=== PATIENT | female | born 1975 | race Two or more races ===

== ENCOUNTER 2024-10-08 19:54 | Inpatient (IN) | payer MEDICAID, OTHER ==
[~2024-10-08] VITALS: Ht 165.1 cm; Wt 110.9 kg
[2024-10-08 20:36] LABS: Hematocrit 30.7 % (36.0-46.0); Hemoglobin 10.5 g/dL (12.2-16.2); Mean Corpuscular Hemoglobin 29.3 pg (28.0-32.0); Mean Corpuscular Volume 85.6 fL (80.0-100.0); Nucleated Red Blood Cells % 0.0 %
[2024-10-08 20:49] LABS: Alanine Aminotransferase 25 U/L (7-40); Albumin 4.3 g/dL (3.2-4.8); Alkaline Phosphatase 88 U/L (46-116); Anion Gap 11 (5-15); BUN/Creatinine Ratio 28.6 (10.0-20.0); Blood Urea Nitrogen 20 mg/dL (9-23); Carbon Dioxide 23 mmol/L (20-31); Chloride 104 mmol/L (98-107); Lipase 43 U/L (12-53); Potassium 3.7 mmol/L (3.5-5.1); Sodium 138 mmol/L (136-145); Total Protein 6.8 g/dL (5.7-8.2)
--- NOTE | 2024-10-08 20:52 | ED.PDOC ---
GI ASSESSMENT HPI Comments HPI: Nereida 49 y.o female presents to the ED for a chief complaint of epigastric pain that started 1 day ago. Patient reports pain is constant, sharp, and non radiating. Patient reports pain worsens when she eats spicy foods, in which she had recently but has no alleviating factors. Patient also admits to excessive Ibu profen use due to hx of migraines, states no intake yesterday however the day before had 2,000mg spread throughout the day. Patient had an endoscopy done a while back finding ulcers and had a surgical intervention done in which she is unable to recall procedure name. Patient denies any nausea, vomiting, diarrhea, fever, chills, hematuria. dysuria. Vitals Temp: 98.1 F HR: 93 BP: 117/81 RR: 18 SPO2: 99% RA Past Medical history: gastric ulcers Past Surgical history: ulcers- unknown procedure name and hysterectomy Social History: Denies smoking, ETOH, and drug use. Allergies: NKA HPI: Poor Historian. REVIEW OF SYSTEMS: CONSTITUTIONAL: Denies acute: fever, diaphoresis, chills, generalized weakness. HEAD: Denies acute: headache, photophobia Eyes: Denies acute: Double vision, vision loss, eye pain, eye discharge. EARS: Denies acute: tinnitus, hearing loss, ear discharge, ear pain, THROAT: Denies acute: sore throat, swelling, difficulty swallowing , pain with swallowing, change in voice. NECK: Denies acute: neck pain, neck swelling, stiff neck. HEART: Denies acute : chest pain, palpitations, LUNGS: Denies acute: SOB, wheezing, cough, hemoptysis ABDOMEN: Denies acute: Nausea, Vomiting, diarrhea, melena , hematemesis, hematochezia SKIN: Denies acute: rash, redness, lesions, itchiness. EXTREMITIES: Denies acute: calf pain, numbness, tingling, weakness, denies pain in extremity. Denies acute: Low back pain. Neuro: Denies acute: focal neurological deficit, motor or sensory focal neurological deficit, tremors, seizure like activity, confusion, dizziness, change in mental status, loss of bowel or bladder function, cauda equina like symptoms. : Denies acute: dysuria, hematuria, flank pain, increase in urinary frequency. PSYCH: Denies acute: hallucination, suicidal ideation, homicidal ideation. FEMALE: Denies acute: abnormal vaginal bleeding, foul odor, unusual discharge. PHYSICAL EXAM: General: --mild------acute distress, awake and alert. Head: normocephalic, atraumatic. Neck: supple, trachea is midline, no swelling. Throat: Normal phonation. Eyes:, no erythema, no purulent discharge, no proptosis, no icterus. Heart: regular rate, regular rhythm, no significant murmur appreciated. Lungs: no apparent respiratory distress, Able to speak in full sentences. No wheezing, no rhonchi, no crackles. No stridors Clear to auscultation bilaterally. Abdomen: Epigastric tender to palpation, non distended, soft, no guarding, no rebound, + bowel sounds. Obese Neuro: Awake, Alert, oriented to name, self, situation, follows commands GCS=15. Speech is normal. Skin: no petechia, no purpura, no cyanosis, non-pale, not jaundice. Lower extremities: --no - Pitting edema no deformity, no focal swelling, no calf TTP. Makes eye contact. moves all four extremities. Face: no apparent facial droop. Ambulating in the ED independently. ED COURSE: DISCLAIMER: This medical document was created using an electronic medical record system with voice recognition software and computerized dictation system. Although this document has been carefully reviewed, there might still be some phonetic and typographical errors. Occasional wrong-word or "sound-alike" substitutions may have occurred due to the inherent limitations of voice recognition software. These areas are purely typographical due to imperfections of the software programs and do not reflect any compromise in the patient's medical care. Please read the chart carefully and recognize, using context, where these substitutions have occurred. 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 Was a procedure done?: No X-Ray, Labs, Meds, VS Vital Signs Date Time Temp Pulse Resp B/P (MAP) Pulse Ox O2 Delivery O2 Flow Rate FiO2 10/08/24 19:58 98.1 93 18 117/81 99 98.1 Lab Test 10/09/24 05:15 10/09/24 03:29 10/08/24 23:37 10/08/24 21:14 Range/Units Lactic Acid Level 2.2 *H 2.3 *H 2.9 *H 0.4-2.0 mmol/L Troponin I High Sensitivity < 3 L </=34 ng/L Urine Color Light-yellow Yellow Urine Clarity Clear Clear Urine pH 6.0 5.0-9.0 Urine Specific [place] 1.031 1.001-1.035 Urine Protein Negative Negative Urine Ketones Negative Negative Urine Blood Negative Negative /uL Urine Nitrite Negative Negative Urine Bilirubin Negative Negative Urine Urobilinogen Normal Negative mg/dL Urine Leukocyte Esterase Trace Negative /uL Urine RBC 2 0 - 4 /hpf Urine Microscopic WBC < 1 0-5 /HPF Urine Squamous Epithelial Cells Mod <5 /hpf Urine Amorphous Crystals Few None Seen /hpf Urine Bacteria None seen None Seen /hpf Urine Glucose Trace Normal mg/dL Test 10/08/24 21:03 10/08/24 20:25 Range/Units Troponin I High Sensitivity < 3 L < 3 L </=34 ng/L White Blood Count 10.3 4.4-10.8 10^3/uL Red Blood Count 3.59 L 4.0-5.20 10^6/uL Hemoglobin 10.5 L 12.2-16.2 g/dL Hematocrit 30.7 L 36.0-46.0 % Mean Corpuscular Volume 85.6 80.0-100.0 fL Mean Corpuscular Hemoglobin 29.3 28.0-32.0 pg Mean Corpuscular Hemoglobin Concent 34.2 32.0-36.0 g/dL Red Cell Distribution Width 13.7 11.8-14.3 % Platelet Count 239 140-450 10^3/uL Mean Platelet Volume 9.8 6.9-10.8 fL Neutrophils (%) (Auto) 55.7 37.0-80.0 % Lymphocytes (%) (Auto) 37.4 10.0-50.0 % Monocytes (%) (Auto) 4.8 0.0-12.0 % Eosinophils (%) (Auto) 1.7 0.0-7.0 % Basophils (%) (Auto) 0.4 0.0-2.0 % Neutrophils # (Auto) 5.7 1.6-8.6 10 ^3/uL Lymphocytes # (Auto) 3.9 0.4-5.4 10 ^3/uL Monocytes # (Auto) 0.5 0-1.3 10 ^3/uL Eosinophils # (Auto) 0.2 0-0.8 10 ^3/uL Basophils # (Auto) 0 0-0.2 10 ^3/uL Nucleated Red Blood Cells 0.0 % Sodium Level 138 136-145 mmol/L Potassium Level 3.7 3.5-5.1 mmol/L Chloride Level 104 98-107 mmol/L Carbon Dioxide Level 23 20-31 mmol/L Anion Gap 11 5-15 Blood Urea Nitrogen 20 9-23 mg/dL Creatinine 0.70 0.550-1.02 mg/dL Glomerular Filtration Rate Calc 105 >90 mL/min BUN/Creatinine Ratio 28.6 H 10.0-20.0 Serum Glucose 216 H 74-106 mg/dL Lactic Acid Level 2.6 *H 0.4-2.0 mmol/L Calcium Level 8.6 L 8.7-10.4 mg/dL Total Bilirubin 0.2 0.2-1.0 mg/dL Aspartate Amino Transferase (AST) 16 13-40 U/L Alanine Aminotransferase (ALT) 25 7-40 U/L Alkaline Phosphatase 88 46-116 U/L Total Protein 6.8 5.7-8.2 g/dL Albumin 4.3 3.2-4.8 g/dL Lipase 43 12-53 U/L Current Medications Medications (Trade) Dose Ordered Sig/Taras Route Start Time Stop Time Status Last Admin Sucralfate (Carafate Tab) 1 gm ONCE ONCE PO 10/08/24 20:45 8/11/25 20:46 DC 10/09/24 02:08 Pantoprazole Sodium (Protonix Tablet) 40 mg ONCE ONCE PO 10/08/24 20:45 10/08/24 20:46 DC 10/09/24 02:10 Lidocaine HCl (Xylocaine 2% Viscous) 10 ml ONCE ONCE PO 10/08/24 20:45 10/08/24 20:46 DC 10/09/24 02:07 Sodium Chloride 1,000 ml @ 1,000 mls/hr Q1H ONCE IV 10/08/24 21:15 10/08/24 22:14 DC 10/08/24 21:15 Sodium Chloride 1,000 ml @ 1,000 mls/hr Q1H ONCE IV 10/09/24 01:00 10/09/24 01:59 DC 10/09/24 01:00 Pantoprazole Sodium (Protonix) 40 mg ONCE ONCE IV 10/09/24 06:45 10/09/24 06:46 DC 10/09/24 09:06 Time of 1ST Reevaluation: 20:51 Reevaluation 1ST: Unchanged Patient Education/Counseling: Diagnosis, Treatment Family Education/Counseling: No Family Present Comments CT scan findings suggest ovarian cyst. Patient has no lower abdominal pain whatsoever. MDM: patient presented with the above HPI.--epigastric abdominal pain---workup was initiated. patient was found with the above mentioned diagnosis. the following medications were ordered: please refer to order lists of meds and tests obtained by myself Dr. Gallagher. Patient ED course and VS have been stabilized. Patient has been reassessed in the ED and remained in a stable condition. Pertinent incidental findings were discussed with the patient and/or family. Patient/family voices understanding and is agreeable with plan. Patient has been observed in the ED adequate length of time to insure improvement/stability. Escalation of care considered: Consideration of escalation to observation or admission Patient is given GI cocktail and fluids. Patient's lactic acid continues to rise. Patient was ADMITTED to the medicine team for further evaluation and treatment of their presentation. All the reports of any imaging studies that were ordered by myself were reviewed by myself. SEPSIS Sepsis Screen Date sepsis recognized/suspect: Oct 08, 2024 Time Sepsis recognized/suspect: 1957 Recent Procedure: No On Antibiotic Therapy: No Respiratory Rate >20: No Heart Rate >90: Yes Temp<36 C (96.8 F) or >38.3 C: No SBP <90 or MAP <65 mmHG: No New Acute Mental Status Change: No Is the patient on CPAP, BIPAP,: No Physician Orders Ct Ab Pel Wo Con-No Oral Or Iv (10/08/24 19:57) Manager Basketball (10/08/24 ) Electrocardigram (10/08/24 19:57) Vital Signs Date Time Temp Pulse Resp B/P (MAP) Pulse Ox O2 Delivery O2 Flow Rate FiO2 10/08/24 19:58 98.1 93 18 117/81 99 98.1 Laboratory Tests Test 10/08/24 20:25 10/08/24 23:37 10/09/24 03:29 10/09/24 05:15 Lactic Acid Level 2.6 mmol/L (0.4-2.0) *H 2.9 mmol/L (0.4-2.0) *H 2.3 mmol/L (0.4-2.0) *H 2.2 mmol/L (0.4-2.0) *H White Blood Count 10.3 10^3/uL (4.4-10.8) Medications Medications Dose Ordered Sig/Taras Route Start Time Stop Time Status Last Admin Dose Admin Pantoprazole Sodium 40 mg ONCE ONCE IV 10/09/24 06:45 10/09/24 06:46 DC 10/09/24 09:06 Sodium Chloride 1,000 ml @ 1,000 mls/hr Q1H ONCE IV 10/09/24 01:00 10/09/24 01:59 DC 10/09/24 01:00 Departure 1 Departure Time of Disposition: 06:46 (Patient is having episodes of melena while here. Will admit for further workup and expert consultation.) Impression: Primary Impression: Epigastric abdominal pain Additional Impressions: Anemia Elevated lactic acid level Disposition: ADMITTED INPATIENT Admit to: Med Surg Condition: Serious Discharged With: Self Critical Care Note Critical Care Time?: No Differential Diagnosis: Other Other Differential Diagnosis DDX include Diverticulitis, colitis, gastroenteritis, acute abdomen, SBO, ente ritis, constipation, volvulus, appendicitis, Gallbladder disease, choledocolithiasis, ascending cholangitis, pancreatitis, intraAbdominal mass/neoplasm, hepatitis, UTI, pylonephritis, kidney stone, aneurysm, dissection, Inflammatory bowel disease, gastroparesis, ischemic bowel, ovarian torsion, ovarian cyst/mass, tubo-ovarian abscess, , ectopic , PID, STD. Stability Stability form required: No I personally scribed for ANAY GALLAGHER DO ([email or web address]) on 10/08/24 at 20:52. Electronically submitted by Carli Hobson ([facility]). ANAY GALLAGHER DO Oct 08, 2024 20:52 AGUSTIN KELLER MD Oct 09, 2024 06:46
[2024-10-08 20:54] LABS: Bilirubin, Total 0.2 mg/dL (0.2-1.0); Calcium 8.6 mg/dL (8.7-10.4); Glucose 216 mg/dL (74-106)
[2024-10-08 20:56] LABS: Lactic Acid w/Reflex 2.6 mmol/L (0.4-2.0)
[2024-10-08] MEDS: SODIUM CHLORIDE 0.9% 1,000 ML IV ONE (21:15)
--- NOTE | 2024-10-08 21:19 | DVH ---
COMPUTERIZED TOMOGRAPHY ABDOMEN AND PELVIS WITHOUT CONTRAST REASON FOR EXAM: abd pain COMPARISON: None TECHNIQUE: Spiral scans were acquired from the diaphragm to the symphysis pubis without intravenous c ontrast administration. 2-D coronal and sagittal reformatted images were provided. Radiation optimiza tion: All CT scans at this facility use at least one of these dose optimization techniques: Automated exposure control mA and/or kV adjustment per patient size (includes targeted exams where dose is mat ched to clinical indication) or iterative reconstruction. RADIATION DOSE: CTDI: 25.75 mGy DLP: 1339.38 mGy-cm FINDINGS: The visualized lung bases are clear. There is no pleural effusion. There is no pericardial effusion . The spleen is not enlarged. The liver is enlarged at approximately 22.9 cm in length. The liver is d iffusely hypoattenuating. No calcified gallstone is identified. Evaluation of the abdominal content s is suboptimal in the absence of intravenous contrast. Unenhanced appearance of the pancreas is kia sly unremarkable. There is evidence of prior gastric sleeve surgery. The adrenal glands are normal. The kidneys are similar in size. There is no hydronephrosis of either kidney. There is no renal, uret eral, or bladder calculus. The urinary bladder is grossly unremarkable. There is no abdominal aortic aneurysm. There is no free fluid identified in the abdomen or pelvis. The uterus is absent. The left ovary is not seen. There is a 3.4 cm right ovarian cyst. The colonic stool burden is small. The appe ndix is normal. There is no distention of the small bowel to suggest obstruction. No pathologic lymph adenopathy is identified by size criteria. No acute osseous abnormality is identified. IMPRESSION: There is a 3.4 cm right ovarian cyst. This may be a cause of pain. Pelvic ultrasound is recommended . Hepatomegaly. The liver is diffusely hypoattenuating which may be secondary to steatosis or another d iffuse hepatic process. Correlate clinically and with liver function tests. Normal appendix Gastric sleeve.
[2024-10-08 21:33] LABS: Urine Amorphous Crystal FEW /hpf (None Seen); Urine Protein, UAD Negative (Negative)
[2024-10-09] MEDS: SODIUM CHLORIDE 0.9% 1,000 ML IV ONE ×2 (01:00→17:45)
[2024-10-09] MEDS: LIDOCAINE VISCOUS 2% 15ML UD PO ONE (02:07)
[2024-10-09] MEDS: SUCRALFATE 1 GM TAB PO ONE (02:08)
[2024-10-09] MEDS: PANTOPRAZOLE 40 MG TAB PO ONE (02:10)
[2024-10-09 04:05] LABS: Lactic Acid w/Reflex 2.3 mmol/L (0.4-2.0)
[2024-10-09] MEDS ORDERED: DOCUSATE SOD 100 MG CAP PO PRN (08:15)
[2024-10-09] MEDS ORDERED: ONDANSETRON HCL 4 MG/2 ML VIAL IV PRN (08:15)
--- NOTE | 2024-10-09 08:24 | DVHHP2 ---
History of Present Illness Reason for Visit: Abdomial pain History of Present Illness Eav Padron is a 49-year-old female with a past medical history of gastric ulcer requiring surgical repair 30years ago, diabetes, fibromyalgia, and migraines, who came to the hospital for abdominal pain. Patient states she was experiencing daily migraines for which she is taking Excedrin 2-3 times a day and then takes Motrin about 2 hours after the Excedrin. 2 days ago she began experiencing epigastric abdominal pain and black stool. The pain continued to worsen and her stool remained black over the last couple of days prompting her to come to the hospital. 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 Musculoskeletal: Other (Fibromyalgia) Endocrine: Diabetes Past Surgical History: Hysterectomy, Other (stomach ulcer surgery 30 years ago) Smoke: Quit (1 month ago) ALCOHOL: rare Drugs: None Lives: with Family Domestic Violence: Neg Review of Systems Constitutional: No: Fever, Chills, Sweats, Weakness, Malaise, Other Eyes: No: Pain, Vision change, Conjunctivae inflammation, Eyelid inflammation, Other, Redness ENT: No: Ear pain, Ear discharge, Nose pain, Nose discharge, Nose congestion, Mouth pain, Mouth swelling, Throat pain, Throat swelling, Other Respiratory: No: Cough, Dry, Shortness of breath, SOB with excertion, Wheezing, Hemoptysis, Pleuritic Pain, Sputum, Wheezing, Other Cardiovascular: No: Chest Pain, Palpitations, Orthopnea, Paroxysmal Noc. Dyspnea, Edema, Lt Headedness, Other Gastrointestinal: Abdominal Pain, Melena; No: Nausea, Vomiting, Diarrhea, Constipation, Hematochezia, Other Genitourinary: No Dysuria, No Frequency, No Incontinence, No Hematuria, No Retention, No Other Musculoskeletal: No: other, neck pain, shoulder pain, arm pain, back pain, hand pain, leg pain, foot pain Skin: No: Rash, Lesions, Jaundice, Bruising, Other Neurological: No: Weakness, Numbness, Incoordination, Change in speech, Confusion, Seizures, Other Allergies: Coded Allergies: NO KNOWN ALLERGIES (Unverified , 10/08/24) Medications Current Medications Medications Dose Ordered Sig/Taras Route Start Time Stop Time Status Last Admin Dose Admin Acetaminophen/ Hydrocodone Bitart 1 tab Q4HP PRN PO 10/09/24 08:15 UNV Ondansetron HCl 4 mg Q4HP PRN IV 10/09/24 08:15 UNV Docusate Sodium 100 mg BIDPRN PRN PO 10/09/24 08:15 UNV Acetaminophen 650 mg Q6HP PRN PO 10/09/24 08:15 UNV Exam Vital Signs Vital Signs Date Time Temp Pulse Resp B/P (MAP) Pulse Ox O2 Delivery O2 Flow Rate FiO2 10/08/24 19:58 98.1 93 18 117/81 99 98.1 General Appearance: Alert, Oriented X3, Cooperative, mild distress HEENT: Atraumatic, PERRLA Respiratory: Clear to auscultation, Normal air movement Cardiovascular: Regular rate, Normal S1, Normal S2, No murmurs Abdominal: Normal bowel sounds, Soft, Other (epigastric pain, Melena) Extremities: No clubbing, No cyanosis, No edema, Normal pulses, No tenderness/swelling Skin: No rashes, No breakdown, No significant lesion Neuro: Normal gait, Normal speech, Strength at 5/5 X4 ext, Normal tone Psych/Mental Status: Mental status NL, Mood NL Labs/Xrays Labs Test 10/09/24 05:15 10/08/24 23:37 10/08/24 21:14 10/08/24 20:25 Range/Units Lactic Acid Level 2.2 *H 0.4-2.0 mmol/L Troponin I High Sensitivity < 3 L </=34 ng/L Urine Color Light-yellow Yellow Urine Clarity Clear Clear Urine pH 6.0 5.0-9.0 Urine Specific [place] 1.031 1.001-1.035 Urine Protein Negative Negative Urine Ketones Negative Negative Urine Blood Negative Negative /uL Urine Nitrite Negative Negative Urine Bilirubin Negative Negative Urine Urobilinogen Normal Negative mg/dL Urine Leukocyte Esterase Trace Negative /uL Urine RBC 2 0 - 4 /hpf Urine Microscopic WBC < 1 0-5 /HPF Urine Squamous Epithelial Cells Mod <5 /hpf Urine Amorphous Crystals Few None Seen /hpf Urine Bacteria None seen None Seen /hpf Urine Glucose Trace Normal mg/dL White Blood Count 10.3 4.4-10.8 10^3/uL Red Blood Count 3.59 L 4.0-5.20 10^6/uL Hemoglobin 10.5 L 12.2-16.2 g/dL Hematocrit 30.7 L 36.0-46.0 % Mean Corpuscular Volume 85.6 80.0-100.0 fL Mean Corpuscular Hemoglobin 29.3 28.0-32.0 pg Mean Corpuscular Hemoglobin Concent 34.2 32.0-36.0 g/dL Red Cell Distribution Width 13.7 11.8-14.3 % Platelet Count 239 140-450 10^3/uL Mean Platelet Volume 9.8 6.9-10.8 fL Neutrophils (%) (Auto) 55.7 37.0-80.0 % Lymphocytes (%) (Auto) 37.4 10.0-50.0 % Monocytes (%) (Auto) 4.8 0.0-12.0 % Eosinophils (%) (Auto) 1.7 0.0-7.0 % Basophils (%) (Auto) 0.4 0.0-2.0 % Neutrophils # (Auto) 5.7 1.6-8.6 10 ^3/uL Lymphocytes # (Auto) 3.9 0.4-5.4 10 ^3/uL Monocytes # (Auto) 0.5 0-1.3 10 ^3/uL Eosinophils # (Auto) 0.2 0-0.8 10 ^3/uL Basophils # (Auto) 0 0-0.2 10 ^3/uL Nucleated Red Blood Cells 0.0 % Sodium Level 138 136-145 mmol/L Potassium Level 3.7 3.5-5.1 mmol/L Chloride Level 104 98-107 mmol/L Carbon Dioxide Level 23 20-31 mmol/L Anion Gap 11 5-15 Blood Urea Nitrogen 20 9-23 mg/dL Creatinine 0.70 0.550-1.02 mg/dL Glomerular Filtration Rate Calc 105 >90 mL/min BUN/Creatinine Ratio 28.6 H 10.0-20.0 Serum Glucose 216 H 74-106 mg/dL Calcium Level 8.6 L 8.7-10.4 mg/dL Total Bilirubin 0.2 0.2-1.0 mg/dL Aspartate Amino Transferase (AST) 16 13-40 U/L Alanine Aminotransferase (ALT) 25 7-40 U/L Alkaline Phosphatase 88 46-116 U/L Total Protein 6.8 5.7-8.2 g/dL Albumin 4.3 3.2-4.8 g/dL Lipase 43 12-53 U/L COMPUTERIZED TOMOGRAPHY ABDOMEN AND PELVIS WITHOUT CONTRAST FINDINGS: The visualized lung bases are clear. There is no pleural effusion. There is no pericardial effusion. The spleen is not enlarged. The liver is enlarged at approximately 22.9 cm in length. The liver is diffusely hypoattenuating. No calcified gallstone is identified. Evaluation of the abdominal contents is suboptimal in the absence of intravenous contrast. Unenhanced appearance of the pancreas is grossly unremarkable. There is evidence of prior gastric sleeve surgery. The adrenal glands are normal. The kidneys are similar in size. There is no hydronephrosis of either kidney. There is no renal, ureteral, or bladder calculus. The urinary bladder is grossly unremarkable. There is no abdominal aortic aneurysm. There is no free fluid identified in the abdomen or pelvis. The uterus is absent. The left ovary is not seen. There is a 3.4 cm right ovarian cyst. The colonic stool burden is small. The appendix is normal. There is no distention of the small bowel to suggest obstruction. No pathologic lymphadenopathy is identified by size criteria. No acute osseous abnormality is identified. IMPRESSION: There is a 3.4 cm right ovarian cyst. This may be a cause of pain. Pelvic ultrasound is recommended. Hepatomegaly. The liver is diffusely hypoattenuating which may be secondary to steatosis or another diffuse hepatic process. Correlate clinically and with liver function tests. Normal appendix Gastric sleeve. SEPSIS Sepsis Screen Date sepsis recognized/suspect: Oct 08, 2024 Time Sepsis recognized/suspect: 1957 Recent Procedure: No On Antibiotic Therapy: No Respiratory Rate >20: No Heart Rate >90: Yes Temp<36 C (96.8 F) or >38.3 C: No SBP <90 or MAP <65 mmHG: No New Acute Mental Status Change: No Is the patient on CPAP, BIPAP,: No Physician Orders Admit (10/09/24 08:05) Code Status (10/09/24 08:05) Hydrocodone-Acet 5/325mg Tab ([place] 5/32 (10/09/24 08:15) Ondansetron Hcl (Zofran) (10/09/24 08:15) Docusate Sodium Capsule (Colace Capsule) (10/09/24 08:15) Complete Blood Count (10/10/24 04:00) Comprehensive Metabolic Panel (10/10/24 04:00) Condition: Serious (10/09/24 08:05) Acetaminophen Tablet (Tylenol Tablet) (10/09/24 08:15) Clear Liq Diet (10/09/24 Breakfast) Hemoglobin & Hematocrit (10/09/24 08:05) Lactic Acid W/ Reflex Order (10/09/24 08:05) * 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 (10/09/24 08:05) Laboratory Tests Test 10/08/24 20:25 10/08/24 23:37 10/09/24 03:29 10/09/24 05:15 Lactic Acid Level 2.6 mmol/L (0.4-2.0) *H 2.9 mmol/L (0.4-2.0) *H 2.3 mmol/L (0.4-2.0) *H 2.2 mmol/L (0.4-2.0) *H White Blood Count 10.3 10^3/uL (4.4-10.8) Medications Medications Dose Ordered Sig/Taras Route Start Time Stop Time Status Last Admin Dose Admin Lidocaine HCl 10 ml ONCE ONCE PO 10/08/24 20:45 10/08/24 20:46 DC 10/09/24 02:07 10 ML Pantoprazole Sodium 40 mg ONCE ONCE PO 10/08/24 20:45 10/08/24 20:46 DC 10/09/24 02:10 40 MG Sodium Chloride 1,000 ml @ 1,000 mls/hr Q1H ONCE IV 10/08/24 21:15 10/08/24 22:14 DC 10/08/24 21:15 1,000 MLS/HR Sodium Chloride 1,000 ml @ 1,000 mls/hr Q1H ONCE IV 10/09/24 01:00 10/09/24 01:59 DC 10/09/24 01:00 1,000 MLS/HR Sucralfate 1 gm ONCE ONCE PO 10/08/24 20:45 10/08/24 20:46 DC 10/09/24 02:08 1 GM Assessment/Plan Assessment/Plan Assessment: Melena, Acute abdominal pain, Lactic acidosis, Diabetes, Fibromyalgia, Plan: Admit to Med-Surg, GI consult, IV hydration, Send stool for occult blood, Clear liquid diet, Manage/Monitor H&H closely, Accu checks Q AC&HS with sliding scale, Home medications reconciled, Plan discussed with: Patient My Orders Orders - CABRERA JOLLY Procedure Category Date Status Time Admit ADMIT 10/09/24 Transmitted 08:05 Code Status CODE 10/09/24 Transmitted 08:05 Hydrocodone-Acet PHA 10/09/24 Logged 5/325mg Tab ([place] 08:15 Ondansetron Hcl PHA 10/09/24 Logged (Zofran) 08:15 Docusate Sodium PHA 10/09/24 Logged Capsule (Colace 08:15 Complete Blood Count LAB 10/10/24 Verified 04:00 Comprehensive LAB 10/10/24 Verified Metabolic Panel 04:00 Condition: Serious BOBBY 10/09/24 In Process 08:05 Acetaminophen Tablet PHA 10/09/24 Logged (Tylenol Tablet) 08:15 Clear Liq Diet DIET 10/09/24 Transmitted Breakfast Hemoglobin & LAB 10/09/24 Logged Hematocrit 08:05 Lactic Acid W/ Reflex LAB 10/09/24 Logged Order 08:05 * 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 CONS 10/09/24 Transmitted 08:05 Date of Service: Oct 09, 2024 Billing Provider: CABRERA JOLLY Common Visit Codes: [id number] INP/OBS CARE (MOD) CABRERA JOLLYP Oct 09, 2024 08:24
[2024-10-09 08:54] LABS: Hematocrit 29.5 % (36.0-46.0); Hemoglobin 10.1 g/dL (12.2-16.2)
[2024-10-09 09:00] VITALS: PULSE 93; RESP 17; O2SAT 100
[2024-10-09] MEDS ORDERED: DEXTROSE (50%) 50ML SYRG IV PRN (09:00)
[2024-10-09] MEDS: PANTOPRAZOLE 40 MG/10 ML VIAL INJ IV ONE (09:06)
[2024-10-09 09:17] LABS: Lactic Acid w/Reflex 2.6 mmol/L (0.4-2.0)
[2024-10-09 11:10] VITALS: BP 108/67; PULSE 93; RESP 20; TEMP 98.2; O2SAT 97
[2024-10-09] MEDS: ACCU-CHEK COMFORT CURVE STRIP VI SCH (11:20)
[2024-10-09] MEDS: InsuLIN REG 1unit/0.01ml Soln (100units/ml) SC SCH ×2 (11:21→21:15)
[2024-10-09 13:00] VITALS: BP 100/61; PULSE 87; RESP 18; TEMP 99.1; O2SAT 98
--- NOTE | 2024-10-09 13:54 | DVHINCON2 ---
GI Consult Consult Note GI consult note Date of Consultation: 10/09/2024 Chief Complaint: Melena Referring Physician: Raghav ALEXANDER H&P: 49-year-old female with past medical history of gastric ulcer requiring gas trick surgical repair 30 years ago, DM fibromyalgia and migraines is admitted with abdominal pain. Patient has epigastric abdominal pain for the three days, described as persistent burning to sharp sensation. Pain is worse after eating. Patient has nausea denies vomiting no hematemesis. Patient has been having black stool for the past three days. Has not been taking any Pepto-Bismol. No EGD in past. Denies any blood thinners Past Medical History: Migraine , fibromyalgia, DM Past Surgical History: Hysterectomy, Other (stomach ulcer surgery 30 years ago) Social History: NO smoking, drinking ETOH and use of illegal drugs. Family History: Noncontributory Review of Systems: Constitutional: no fever, chill, weight loss HEENT: no eye pain, no hearing loss, no oral lesion, no scleral icterus Heart: no chest pain, no chest pressure Lung: no cough, no dyspnea with exertion Abdomen: see HPI Physical exam: General: NAD, AAOX3 Chest: lung schmid clear to auscultation Heart: RRR, no murmur Abdomen: non-distended, positive epigastric tenderness to palpation, +BS Labs: Labs Test 10/09/24 12:51 10/09/24 11:18 10/09/24 08:30 10/08/24 23:37 Range/Units Stool Occult Blood Positive Negative Stool Occult Blood Sample #3 Negative POC Glucose 208 H 70-106 mg/dl Hemoglobin 10.1 L 12.2-16.2 g/dL Hematocrit 29.5 L 36.0-46.0 % Hemoglobin A1c 9.4 H <5.7 % A1C Lactic Acid Level 2.6 *H 0.4-2.0 mmol/L Troponin I High Sensitivity < 3 L </=34 ng/L Test 10/08/24 21:14 10/08/24 20:25 Range/Units Urine Color Light-yellow Yellow Urine Clarity Clear Clear Urine pH 6.0 5.0-9.0 Urine Specific [place] 1.031 1.001-1.035 Urine Protein Negative Negative Urine Ketones Negative Negative Urine Blood Negative Negative /uL Urine Nitrite Negative Negative Urine Bilirubin Negative Negative Urine Urobilinogen Normal Negative mg/dL Urine Leukocyte Esterase Trace Negative /uL Urine RBC 2 0 - 4 /hpf Urine Microscopic WBC < 1 0-5 /HPF Urine Squamous Epithelial Cells Mod <5 /hpf Urine Amorphous Crystals Few None Seen /hpf Urine Bacteria None seen None Seen /hpf Urine Glucose Trace Normal mg/dL White Blood Count 10.3 4.4-10.8 10^3/uL Red Blood Count 3.59 L 4.0-5.20 10^6/uL Mean Corpuscular Volume 85.6 80.0-100.0 fL Mean Corpuscular Hemoglobin 29.3 28.0-32.0 pg Mean Corpuscular Hemoglobin Concent 34.2 32.0-36.0 g/dL Red Cell Distribution Width 13.7 11.8-14.3 % Platelet Count 239 140-450 10^3/uL Mean Platelet Volume 9.8 6.9-10.8 fL Neutrophils (%) (Auto) 55.7 37.0-80.0 % Lymphocytes (%) (Auto) 37.4 10.0-50.0 % Monocytes (%) (Auto) 4.8 0.0-12.0 % Eosinophils (%) (Auto) 1.7 0.0-7.0 % Basophils (%) (Auto) 0.4 0.0-2.0 % Neutrophils # (Auto) 5.7 1.6-8.6 10 ^3/uL Lymphocytes # (Auto) 3.9 0.4-5.4 10 ^3/uL Monocytes # (Auto) 0.5 0-1.3 10 ^3/uL Eosinophils # (Auto) 0.2 0-0.8 10 ^3/uL Basophils # (Auto) 0 0-0.2 10 ^3/uL Nucleated Red Blood Cells 0.0 % Sodium Level 138 136-145 mmol/L Potassium Level 3.7 3.5-5.1 mmol/L Chloride Level 104 98-107 mmol/L Carbon Dioxide Level 23 20-31 mmol/L Anion Gap 11 5-15 Blood Urea Nitrogen 20 9-23 mg/dL Creatinine 0.70 0.550-1.02 mg/dL Glomerular Filtration Rate Calc 105 >90 mL/min BUN/Creatinine Ratio 28.6 H 10.0-20.0 Serum Glucose 216 H 74-106 mg/dL Calcium Level 8.6 L 8.7-10.4 mg/dL Total Bilirubin 0.2 0.2-1.0 mg/dL Aspartate Amino Transferase (AST) 16 13-40 U/L Alanine Aminotransferase (ALT) 25 7-40 U/L Alkaline Phosphatase 88 46-116 U/L Total Protein 6.8 5.7-8.2 g/dL Albumin 4.3 3.2-4.8 g/dL Lipase 43 12-53 U/L Imaging: CT abdomen pelvis IMPRESSION: There is a 3.4 cm right ovarian cyst. This may be a cause of pain. Pelvic ultrasound is recommended. Hepatomegaly. The liver is diffusely hypoattenuating which may be secondary to steatosis or another diffuse hepatic process. Correlate clinically and with liver function tests. Normal appendix Gastric sleeve. Assessment: Abdominal pain GI bleed Ovarian cyst Hepatomegaly Status post gastric sleeve Plan: Discussed with Dr. Farias - Pt will be scheduled for an EGD tomorrow 10/10/2024. Pt was informed of the risks (bleeding, infection, perforation, reaction to sedation medications and cardiopulmonary arrest) and benefit and is agreeable to undergo the procedures. Zofran and Protonix NPO after midnight Discussed plan with patient and RN Thank you for this consult Date of Service: Oct 09, 2024 Billing Provider: KATHERINE VALENTIN Common Visit Codes: CONSULT ONLY Consultation Codes: [id number] CONSULT <60MIN KATHERINE VALENTIN Oct 09, 2024 13:54
[2024-10-09 17:00] VITALS: BP 131/79; PULSE 77; RESP 18; TEMP 97.8; O2SAT 98
[2024-10-09] MEDS: ACETAMINOPHEN 325 MG TAB PO PRN (18:45)
[2024-10-09 20:00] VITALS: PULSE 66; RESP 17; O2SAT 99
[2024-10-09 21:00] VITALS: BP 110/61; PULSE 66; RESP 17; TEMP 98.1; O2SAT 99
[2024-10-09] MEDS: HYDROcodone-ACET 5/325MG TAB PO PRN (21:10)
[2024-10-09] MEDS: SUCRALFATE 1 GM/10 ML ORAL SUSP PO SCH (21:11)
[2024-10-10] VITALS (7 sets, daily range): BP systolic 94–125; BP diastolic 65–83; PULSE 62–86; RESP 16–19; TEMP 36.6; O2SAT 95–100
[2024-10-10] MEDS: PANTOPRAZOLE 40 MG TAB PO SCH (05:47)
[2024-10-10 06:37] LABS: Hematocrit 25.1 % (36.0-46.0); Hemoglobin 8.6 g/dL (12.2-16.2); Mean Corpuscular Hemoglobin 29.5 pg (28.0-32.0); Mean Corpuscular Volume 86.0 fL (80.0-100.0); Nucleated Red Blood Cells % 0.2 %
[2024-10-10 06:55] LABS: Alanine Aminotransferase 28 U/L (7-40); Albumin 3.3 g/dL (3.2-4.8); Alkaline Phosphatase 78 U/L (46-116); Anion Gap 9 (5-15); BUN/Creatinine Ratio 15.3 (10.0-20.0); Blood Urea Nitrogen 9 mg/dL (9-23); Carbon Dioxide 25 mmol/L (20-31); Potassium 3.5 mmol/L (3.5-5.1); Sodium 142 mmol/L (136-145)
[2024-10-10 06:58] LABS: Bilirubin, Total 0.3 mg/dL (0.2-1.0); Calcium 8.1 mg/dL (8.7-10.4); Chloride 108 mmol/L (98-107); Glucose 141 mg/dL (74-106); Total Protein 5.5 g/dL (5.7-8.2)
[2024-10-10 07:37] LABS: INR 0.99 (0.9-1.15); Partial Thromboplastin Time 26.3 SEC (24.5-34.5); Prothrombin Time 10.5 sec (9.3-11.8)
[2024-10-10 12:25] LABS: Ferritin 42.8 ng/mL (10-291)
[2024-10-10] MEDS ORDERED: ONDANSETRON HCL 4 MG/2 ML VIAL ONE (12:31)
[2024-10-10] MEDS ORDERED: METOCLOPRAMIDE HCL 5MG/ml INJ 2ml VIAL ONE (12:31)
[2024-10-10] MEDS ORDERED: PROPOFOL 10 MG/ML 20 ML IV ONE (12:31)
[2024-10-10 12:52] LABS: Iron 44.0 ug/dL (50-170)
--- NOTE | 2024-10-10 12:52 | DVHOP2 ---
Operative Report DATE OF OPERATION: 10/10/24 PROCEDURE: Upper Endoscopy with biopsy. PREOPERATIVE INDICATION: The patient is a 49 -year-old female undergoing endoscopy for epigastric pain melena and anemia POSTOPERATIVE DIAGNOSES: 1. [id number] linear antral gastritis with hyperemia erythema and some superficial erosions 2. 5 mm extension of columnar epithelium into the distal esophagus with no significant esophagitis 3. Otherwise normal examination up to the 2nd and 3rd part of the duodenum with good bile drainage and no active bleeding PROCEDURE PERFORMED BY: Leona Farias GI NURSE: Chani SCOPE: Olympus videoendoscope. ASA CLASS: 2 PREOPERATIVE MEDICATIONS: Mac sedation, Kingsley Sanders PROCEDURE IN DETAIL: After obtaining an informed consent, the patient was placed on left lateral decubitus position. The patient was then sedated with the above medications. A bite block was placed between her teeth. The endoscope was then passed through the oropharynx, into the esophagus, and through the stomach and pylorus up to the second and third part of the duodenum. The endoscope was then withdrawn. The 2nd and 3rd part of the duodenum and the duodenal bulb were normal. The pre-pyloric area and antrum showed mild to moderate linear antral gastritis with a couple of superficial erosions On retroflexion the fundus cardia and angularis were normal. Duodenal and gastric biopsies were obtained. There was no fresh or old blood in the upper GI tract. The endoscope was then withdrawn into distal esophagus Patient had a 5 mm extension of columnar epithelium into the distal esophagus with no significant erosive esophagitis The remaining distal and proximal esophagus and oropharynx were unremarkable The patient tolerated the procedure well without difficulty. COMPLICATIONS : None SPECIMENS: Duodenal biopsies Gastric biopsies DISPOSITION: Transfer back to the floor Stable PLAN: 1. Await for biopsy result 2. Will place pt on Protonix 40 mg bid p.o. 3. Carafate 1 g p.o. 4 times a day 4. DC aspirin NSAIDs smoking alcohol 5. Outpatient follow up with me for elective colonoscopy for colon cancer screening LEONA FARIAS MD Oct 10, 2024 12:52
[2024-10-10 12:54] LABS: Total Iron Binding Capacity 333.0 ug/dL (250-425)
[2024-10-10] MEDS ORDERED: SUCR1SUS26 PO (13:58)
[2024-10-10] MEDS ORDERED: PANT40T PO (13:58)
[2024-10-10] MEDS ORDERED: CYAN-17 PO (14:00)
--- NOTE | 2024-10-10 14:02 | DVHDS2 ---
Discharge Summary Date of Admission Oct 09, 2024 at 08:05 Date of Discharge: Oct 10, 2024 Admitting Diagnosis GI Bleed Labs/Diagnostic Data: Laboratory Results Test 10/10/24 11:59 10/10/24 05:18 10/09/24 12:51 10/09/24 08:30 POC Glucose 135 mg/dl (70-106) White Blood Count 4.4 10^3/uL (4.4-10.8) Red Blood Count 2.92 10^6/uL (4.0-5.20) Hemoglobin 8.6 g/dL (12.2-16.2) Hematocrit 25.1 % (36.0-46.0) Mean Corpuscular Volume 86.0 fL (80.0-100.0) Mean Corpuscular Hemoglobin 29.5 pg (28.0-32.0) Mean Corpuscular Hemoglobin Concent 34.4 g/dL (32.0-36.0) Red Cell Distribution Width 14.1 % (11.8-14.3) Platelet Count 152 10^3/uL (140-450) Mean Platelet Volume 9.8 fL (6.9-10.8) Neutrophils (%) (Auto) 54.5 % (37.0-80.0) Lymphocytes (%) (Auto) 37.2 % (10.0-50.0) Monocytes (%) (Auto) 5.0 % (0.0-12.0) Eosinophils (%) (Auto) 2.9 % (0.0-7.0) Basophils (%) (Auto) 0.4 % (0.0-2.0) Neutrophils # (Auto) 2.4 10 ^3/uL (1.6-8.6) Lymphocytes # (Auto) 1.6 10 ^3/uL (0.4-5.4) Monocytes # (Auto) 0.2 10 ^3/uL (0-1.3) Eosinophils # (Auto) 0.1 10 ^3/uL (0-0.8) Basophils # (Auto) 0 10 ^3/uL (0-0.2) Nucleated Red Blood Cells 0.2 % Prothrombin Time 10.5 sec (9.3-11.8) Prothrombin Time INR 0.99 (0.9-1.15) Activated Partial Thromboplast Time 26.3 SEC (24.5-34.5) Sodium Level 142 mmol/L (136-145) Potassium Level 3.5 mmol/L (3.5-5.1) Chloride Level 108 mmol/L (98-107) Carbon Dioxide Level 25 mmol/L (20-31) Anion Gap 9 (5-15) Blood Urea Nitrogen 9 mg/dL (9-23) Creatinine 0.59 mg/dL (0.550-1.02) Glomerular Filtration Rate Calc 109 mL/min (>90) BUN/Creatinine Ratio 15.3 (10.0-20.0) Serum Glucose 141 mg/dL (74-106) Lactic Acid Level 1.0 mmol/L (0.4-2.0) Calcium Level 8.1 mg/dL (8.7-10.4) Iron Level 44 ug/dL (50-170) Total Iron Binding Capacity 333 ug/dL (250-425) Percent Iron Saturation 13.2 % (15-50) Ferritin 42.8 ng/mL (10-291) Total Bilirubin 0.3 mg/dL (0.2-1.0) Aspartate Amino Transferase (AST) 32 U/L (13-40) Alanine Aminotransferase (ALT) 28 U/L (7-40) Alkaline Phosphatase 78 U/L (46-116) Lactate Dehydrogenase 149 U/L (120-246) Total Protein 5.5 g/dL (5.7-8.2) Albumin 3.3 g/dL (3.2-4.8) Vitamin B12 Level 346 pg/mL (211-911) Folic Acid 16.02 ng/mL (>5.38) Stool Occult Blood Positive (Negative) Stool Occult Blood Sample #3 (Negative) Hemoglobin A1c 9.4 % A1C (<5.7) Test 10/08/24 23:37 10/08/24 21:14 10/08/24 20:25 Troponin I High Sensitivity < 3 ng/L (</=34) Urine Color Light-yellow (Yellow) Urine Clarity Clear (Clear) Urine pH 6.0 (5.0-9.0) Urine Specific [place] 1.031 (1.001-1.035) Urine Protein Negative (Negative) Urine Ketones Negative (Negative) Urine Blood Negative /uL (Negative) Urine Nitrite Negative (Negative) Urine Bilirubin Negative (Negative) Urine Urobilinogen Normal mg/dL (Negative) Urine Leukocyte Esterase Trace /uL (Negative) Urine RBC 2 /hpf (0 - 4) Urine Microscopic WBC < 1 /HPF (0-5) Urine Squamous Epithelial Cells Mod /hpf (<5) Urine Amorphous Crystals Few /hpf (None Seen) Urine Bacteria None seen /hpf (None Seen) Urine Glucose Trace mg/dL (Normal) Lipase 43 U/L (12-53) Other Laboratory Tests 10/10/24 05:18 Brief Hx & Hospital Course: Patient is a 49 year-old Obese female who presented to the ED with complaints of Melena for 3-4 days. Patient reports to be taking Excedrin and Ibuprofen for migraines at home. Advised to discontinue at home. EGD was done, see report below. Patient needs to followup with DC clinic in 1 week for Pathology results. Patient also needs to get an elective colonoscopy done as outpatient. Patient will be discharged home with Protonix and Carafate for home. Operations or Procedures Operative Report DATE OF OPERATION: 10/10/24 PROCEDURE: Upper Endoscopy with biopsy. PREOPERATIVE INDICATION: The patient is a 49 -year-old female undergoing endoscopy for epigastric pain melena and anemia POSTOPERATIVE DIAGNOSES: 1. [id number] linear antral gastritis with hyperemia erythema and some superficial erosions 2. 5 mm extension of columnar epithelium into the distal esophagus with no significant esophagitis 3. Otherwise normal examination up to the 2nd and 3rd part of the duodenum with good bile drainage and no active bleeding PROCEDURE PERFORMED BY: Leona Farias GI NURSE: Chani SCOPE: Olympus videoendoscope. ASA CLASS: 2 PREOPERATIVE MEDICATIONS: Mac sedation, Kingsley Sanders PROCEDURE IN DETAIL: After obtaining an informed consent, the patient was placed on left lateral decubitus position. The patient was then sedated with the above medications. A bite block was placed between her teeth. The endoscope was then passed through the oropharynx, into the esophagus, and through the stomach and pylorus up to the second and third part of the duodenum. The endoscope was then withdrawn. The 2nd and 3rd part of the duodenum and the duodenal bulb were normal. The pre-pyloric area and antrum showed mild to moderate linear antral gastritis with a couple of superficial erosions On retroflexion the fundus cardia and angularis were normal. Duodenal and gastric biopsies were obtained. There was no fresh or old blood in the upper GI tract. The endoscope was then withdrawn into distal esophagus Patient had a 5 mm extension of columnar epithelium into the distal esophagus with no significant erosive esophagitis The remaining distal and proximal esophagus and oropharynx were unremarkable The patient tolerated the procedure well without difficulty. COMPLICATIONS : None SPECIMENS: Duodenal biopsies Gastric biopsies DISPOSITION: Transfer back to the floor Stable PLAN: 1. Await for biopsy result 2. Will place pt on Protonix 40 mg bid p.o. 3. Carafate 1 g p.o. 4 times a day 4. DC aspirin NSAIDs smoking alcohol 5. Outpatient follow up with me for elective colonoscopy for colon cancer screening Condition at Discharge: Stable Final Diagnosis/Problems List GI Bleed Uncontrolled DM2 A1c 9.4 Lactic Acidosis Vitamin B12 Def Discharge Disposition: Home Discharge Instruct/Medications Diet: Consistent carbohydrate, Cardiac 2g Na,low cholest Activity: Light activity Follow Up/Referral: [facility] Clinic in 1 week Medications: see med recc Scheduled Cyanocobalamin (B12), 1,000 MCG PO DAILY Pantoprazole Sodium Sesquihydr (Pantoprazole Sodium), 40 MG PO BID@0600,1700 Sucralfate (Carafate Susp), 1 GM PO QID@0600,1130,1700,2200 Discharge Statement: "Patient was advised to return to the ER or call 911 if any headaches, dizziness, shortness of breath, chest pain, abdominal pain, bleeding, fevers, or worsening of medical condition. Patient was counseled about treatment plan, medications, possible side effects, patientverbalized understanding. All questions were answered to the best of my ability. This discharge took greater then 30 minutes in planning, reviewing documentation, counseling the patient, and discussing with other team members." ASSESSMENT ASSESSMENT Assessment Date of Service: Oct 10, 2024 Billing Provider: SHAY LEIVA MD Common Visit Codes: 97751-DAY/OBS DISCH DAY >30min SHAY LEIVA MD Oct 10, 2024 14:02
[2024-10-10 15:09] LABS: Hematocrit 25.9 % (36.0-46.0); Hemoglobin 9.0 g/dL (12.2-16.2)
[2024-10-10] MEDS: SUCRALFATE 1 GM/10 ML ORAL SUSP PO SCH (15:49)
[2024-10-10] MEDS: FERROUS SULFATE 325mg EC TAB PO SCH (18:00)
--- NOTE | 2024-10-10 21:05 | ECG ---
[facility] Test Date: 2024-10-10 Test Time: 06:09:31 Pat Name: SARIAH HERNANDEZ Department: Respiratoy Room: 0214 A Gender: F Decision Support Manager: ANNMARIE : 1975 Requested By: SHAY LEIVA Order Number: [id number] Reading MD: Zion Jasso Measurements Intervals Dixon Rate: 66 P: 15 ND: 178 QRS: -12 QRSD: 94 T: -3 QT: 422 QTc: 443 Interpretive Statements Sinus rhythm Low voltage, precordial leads LVH by voltage Borderline T abnormalities, inferior leads Electronically Signed On 10-15-2024 22:12:57 PDT by Zion Jasso Please click the below link to view image of tracing.
== END 2024-10-10 19:04 | disposition home or self-care (01) | DRG 241 ==
LOC: ER 19:54 → OVERFLOW 10-09 08:05 → CENTRAL 10-09 18:35
PROVIDERS: ADMIT Internal Medicine; ATTEND Internal Medicine
PROC: 0DB68ZX Excision of Stomach, Via Natural or Artificial Opening Endoscopic, Diagnostic (ICD-10-PCS; 2024-10-10)
PROC: 0DB98ZX Excision of Duodenum, Via Natural or Artificial Opening Endoscopic, Diagnostic (ICD-10-PCS; principal; 2024-10-10 12:30)
DX: K29.71 Gastritis, unspecified, with bleeding (principal); E87.20 Acidosis, unspecified; R16.0 Hepatomegaly, not elsewhere classified; E11.9 Type 2 diabetes mellitus without complications; D64.9 Anemia, unspecified; E53.8 Deficiency of other specified B group vitamins; K25.4 Chronic or unspecified gastric ulcer with hemorrhage; E66.9 Obesity, unspecified; G43.909 Migraine, unspecified, not intractable, without status migrainosus; M79.7 Fibromyalgia; Z98.84 Bariatric surgery status; Z90.710 Acquired absence of both cervix and uterus; Z87.11 Personal history of peptic ulcer disease; Z68.41 Body mass index [BMI] 40.0-44.9, adult
CPT/HCPCS: 36415; 43239; 74176; 80053; 81001; 82270; 82607; 82728; 82746; 82962; 83036; 83540; 83550; 83605; 83615; 83690; 84484; 85014; 85018; 85025; 85045; 85610; 85730; 93005; 94640; 96374; G0378; J1815; J2405; J2470; J2704